=== PATIENT | female | born 1995 | race American Indian/Alaskan Native ===

== ENCOUNTER 2016-11-22 08:08 | Inpatient (IN) | payer MEDICAID ==
[2016-11-22] MEDS ORDERED: ePHEDrine SULFATE IV PRN ×4 (10:10→14:49)
[2016-11-22] MEDS ORDERED: MINERAL OIL PO PRN ×2 (10:10→11:30)
[2016-11-22] MEDS ORDERED: BRETHINE SUB-Q PRN ×2 (10:10→11:30)
[2016-11-22] MEDS ORDERED: BRETHINE IVP PRN ×2 (10:10→11:30)
[2016-11-22] MEDS ORDERED: FLUARIX QUAD 2016-2017(36 MOS+) IM ONE (10:28)
[2016-11-22 10:33] LABS: Basophils % (Auto) 0.5 % (0.0-1.8); Eosinophils % (Auto) 2.1 % (0.0-4.3); Hematocrit 33.9 % (30.3-42.9); Hemoglobin 11.3 gm/dl (10.1-14.3); Mean Corpuscular HGB Conc 33 % (30-34); Mean Corpuscular Hemoglobin 28 pg (28-32); Mean Corpuscular Volume 85 fl (79-97); Platelet Count 244 K/mm3 (140-440); Red Blood Count 3.98 M/mm3 (3.65-5.03); White Blood Count 9.7 K/mm3 (4.5-11.0)
[2016-11-22] MEDS ORDERED: PITOCin/NS 30 UNIT/500ML 30 UNIT/500 ML BAG IV SCH ×2 (11:00→12:00)
[2016-11-22] MEDS ORDERED: LACTATED RINGERS 1,000 ML IV SCH ×2 (11:00→12:00)
[2016-11-22] MEDS ORDERED: PITOCin/NS 20 UNIT/1000ML DRIP 20 UNIT/1,000 ML BAG IV SCH ×3 (11:00→20:00)
[2016-11-22] MEDS ORDERED: XYLOCAINE 2% INFILTRATI ONE ×2 (11:30→18:51)
[2016-11-22] MEDS ORDERED: STADOL IV PRN (11:30)
[2016-11-22] MEDS ORDERED: ZOFRAN IV PRN ×2 (11:30→19:08)
[2016-11-22] MEDS ORDERED: NARCAN 0.4 MG/1 ML IV PRN (11:30)
--- NOTE | 2016-11-22 11:43 | History and Physical Report ---
History of Present Illness Date of examination: 11/22/16 Date of admission: 11/22/16 08:09 Chief complaint: Presents for a scheduled induction of labor History of present illness: Late and Limited care, Co-managed with [facility] due to Morbid Obesity. Induction scheduled due to gestational hypertension. Past History Past Medical History: no pertinent history Past Surgical History: no surgical history [employer] History: herpes Family/Genetic History: hypertension (mother, father, MGM) Social history: no significant social history, single - Obstetrical History Expected Date of Delivery: 11/25/16 Actual Gestation: 39 Week(s) 4 Day(s) : 2 Para: 1 Hx # Term Pregnancies: 1 Number of Living Children: 1 #1 Infant Gender: Male year: 16 Birthweight: 2.551 kg Method of Delivery: Vaginal Gestational age at delivery: 39 Complications: other (preciptious home delivery) Medications and Allergies Allergies Allergy/AdvReac Type Severity Reaction Status Date / Time carrot Allergy Swelling Verified 05/08/15 03:57 Home Medications Medication Instructions Recorded Confirmed Last Taken Type Labetalol HCl [Labetalol HCl] 1 tab PO TID 05/08/15 05/08/15 05/08/15 11:00 History One-A-Day 1 Dha Sfgl 1 cap PO DAILY 05/08/15 05/08/15 05/08/15 11:00 History Valacyclovir HCl [valACYclovir] 1 cap PO DAILY 05/08/15 05/08/15 05/07/15 11:00 History Ibuprofen [Motrin 800 MG tab] 800 mg PO Q8HR PRN #30 tablet 11/25/15 Unknown Rx Active Meds: Active Medications Butorphanol Tartrate (Stadol) 2 mg IV Q2H PRN PRN Reason: Pain , Severe (7-10) Ephedrine Sulfate (Ephedrine Sulfate) 10 mg IV Q2M PRN PRN Reason: Hypotension Stop: 11/22/16 11:35 Lactated Ringer's (Lactated Ringers) 1,000 mls @ 125 mls/hr IV DIRECT NED Last Admin: 11/22/16 11:00 Dose: 125 mls/hr Oxytocin/Sodium Chloride (Pitocin/Ns 20 Unit/1000ml Drip) 20 unit in 1,000 mls @ 125 mls/hr IV DIRECT NED Oxytocin/Sodium Chloride (Pitocin/Ns 30 Unit/500ml) 30 unit in 500 mls @ 1 mls/ hr IV TITR NED; 1 MILLIUNITS/MIN PRN Reason: Protocol Lactated Ringer's (Lactated Ringers) 1,000 mls @ 125 mls/hr IV DIRECT NED Oxytocin/Sodium Chloride (Pitocin/Ns 20 Unit/1000ml Drip) 1,000 mls @ 125 mls/ hr IV DIRECT NED Oxytocin/Sodium Chloride (Pitocin/Ns 30 Unit/500ml) 500 mls @ 4 mls/hr IV TITR NED PRN Reason: Protocol Lidocaine (Xylocaine 2%) 20 ml INFILTRATI ONCE ONE Stop: 11/22/16 11:31 Mineral Oil (Mineral Oil) 30 ml PO QHS PRN PRN Reason: Constipation Mineral Oil (Mineral Oil) 30 ml PO QHS PRN PRN Reason: Constipation Naloxone HCl (Narcan 0.4 Mg/1 Ml) 0.1 mg IV Q2MIN PRN PRN Reason: Res Rate </= 8 or 02 SAT < 92% Ondansetron HCl (Zofran) 4 mg IV Q8H PRN PRN Reason: Nausea And Vomiting Terbutaline Sulfate (Brethine) 0.25 mg SUB-Q ONCE PRN PRN Reason: Hyperstimulation/Hypertonicity Stop: 11/22/16 11:31 Terbutaline Sulfate (Brethine) 0.25 mg IVP ONCE PRN PRN Reason: Hyperstimulation/Hypertonicity Stop: 11/22/16 11:31 Review of Systems All systems: negative - Vital Signs Vital signs: Vital Signs Pulse BP 121 H 123/68 11/22/16 08:43 11/22/16 08:43 Temp Pulse Resp BP Pulse Ox 98.1 F 90 16 135/74 100 11/22/16 10:08 11/22/16 11:37 11/22/16 10:08 11/22/16 11:31 11/22/16 11:37 - Physical Exam Breasts: Positive: normal Cardiovascular: Regular rate Lungs: Positive: Clear to auscultation, Normal air movement Abdomen: Positive: normal appearance, soft, normal bowel sounds Genitourinary (Female): Positive: normal external genitalia, normal perenium Anus/Rectum: Positive: normal perianal skin Extremities: Positive: normal - Obstetrical FHR: category 2 FHR comments: FHR: 150s, min to moderate varability, -accels, +occasional mild varbile decels , CTX q 4-5mins Uterine Contraction Monitor Mode: Internal Cervical Dilatation: 3 (AROM of a small amount of clear fluid at 1115) Cervical Effacement Percentage: 50 station: -3 Uterine Contraction Frequency (min): 5 Uterine Contraction Pattern: Regular Uterine Contraction Intensity: Mild Results Result Diagrams: 11/22/16 09:40 Abnormal lab results 11/22/16 Range/Units 09:40 Seg Neutrophils % 72.5 H (40.0-70.0) % All other labs normal. Assessment and Plan A: IUP at 39 4/7 Weeks Gestation Hypertension Category II Tracing Morbid Obesity P: Admit to L&D per routine orders AROM Internals x 2
[2016-11-22] MEDS ORDERED: ePHEDrine SULFATE ONE (14:09)
--- NOTE | 2016-11-22 14:41 | Anesthesia Consultation ---
Anesthesia Consult and Med Hx Date of service: 11/22/16 - Airway Anesthetic Teeth Evaluation: Good ROM Head & Neck: Adequate Mental/Hyoid Distance: Adequate Mallampati Class: Class III Intubation Access Assessment: Possibly Difficult - Pre-Operative Health Status ASA Pre-Surgery Classification: ASA3 Proposed Anesthetic Plan: Epidural, Spinal - Pulmonary Hx Asthma: No COPD: No Hx Pneumonia: No - Cardiovascular System Hx Hypertension: Yes (this preg.) - Central Nervous System Hx Seizures: No Hx Psychiatric Problems: No - Endocrine Hx Renal Disease: No Hx End Stage Renal Disease: No Hx Hypothyroidism: No Hx Hyperthyroidism: No - Hematic Hx Anemia: No Hx Sickle Cell Disease: No - Other Systems Hx Alcohol Use: No Hx Obesity: Yes (super obese BMI 53.4)
[2016-11-22] MEDS ORDERED: fentaNYL-BUPIV 2 MCG/ML-0.125% 200 MCG/100 ML BAG EPIDURAL ONE (14:45)
[2016-11-22] MEDS ORDERED: fentaNYL-BUPIV 2 MCG/ML-0.125% 100 ML EPIDURAL SCH (15:00)
[2016-11-22] MEDS ORDERED: fentaNYL-BUPIV 2 MCG/ML-0.125% 2 MCG/1 ML BAG EPIDURAL SCH (15:00)
[2016-11-22] MEDS ORDERED: NACL 0.9% 1000 ML 1,000 ML IV SCH (17:00)
--- NOTE | 2016-11-22 17:57 | Progress Note ---
Assessment and Plan A: IUP at 39 4/7 Weeks Gestation Hypertension Category II Tracing Morbid Obesity P: Continue Pitocin Augmentation Continue Amnioinfusion Multiple Maternal Position Changes Consult Dr. José Miguel Salazar and Care Transferred to Dr. Salazar Subjective - Subjective Date of service: 11/22/16 Interval history: Late and Limited care, Co-managed with [facility] due to Morbid Obesity. Induction scheduled due to gestational hypertension. Patient reports: other (Resting well under epidural anesthesia) Objective - Vital Signs Vital Signs: Vital Signs - 12hr 11/22/16 11/22/16 11/22/16 08:43 10:00 10:08 Temperature 97.4 F L 98.1 F Pulse Rate 121 H Respiratory 16 16 Rate Blood Pressure 123/68 O2 Sat by Pulse Oximetry 11/22/16 11/22/16 11/22/16 10:29 10:59 11:31 Temperature Pulse Rate 96 H 95 H 93 H Respiratory Rate Blood Pressure 115/61 140/77 135/74 O2 Sat by Pulse Oximetry 11/22/16 11/22/16 11/22/16 11:37 11:42 11:47 Temperature Pulse Rate 90 86 87 Respiratory Rate Blood Pressure O2 Sat by Pulse 100 99 100 Oximetry 11/22/16 11/22/16 11/22/16 11:52 11:57 12:00 Temperature Pulse Rate 88 91 H 86 Respiratory Rate Blood Pressure 137/73 O2 Sat by Pulse 99 100 Oximetry 11/22/16 11/22/16 11/22/16 12:02 12:07 12:12 Temperature Pulse Rate 86 84 84 Respiratory Rate Blood Pressure O2 Sat by Pulse 99 98 99 Oximetry 11/22/16 11/22/16 11/22/16 12:17 12:22 12:27 Temperature Pulse Rate 84 83 102 H Respiratory Rate Blood Pressure O2 Sat by Pulse 99 98 98 Oximetry 11/22/16 11/22/16 11/22/16 12:32 12:37 12:38 Temperature Pulse Rate 76 79 79 Respiratory Rate Blood Pressure O2 Sat by Pulse 100 85 75 L Oximetry 11/22/16 11/22/16 11/22/16 12:42 12:47 12:52 Temperature Pulse Rate 92 H 84 79 Respiratory Rate Blood Pressure O2 Sat by Pulse 100 100 100 Oximetry 11/22/16 11/22/16 11/22/16 12:57 13:01 13:02 Temperature Pulse Rate 84 81 90 Respiratory Rate Blood Pressure 145/76 O2 Sat by Pulse 100 100 Oximetry 11/22/16 11/22/16 11/22/16 13:07 13:10 13:12 Temperature Pulse Rate 87 90 77 Respiratory Rate Blood Pressure O2 Sat by Pulse 100 89 100 Oximetry 11/22/16 11/22/16 11/22/16 13:17 13:22 13:23 Temperature Pulse Rate 93 H 99 H 77 Respiratory Rate Blood Pressure 140/76 O2 Sat by Pulse 100 100 Oximetry 11/22/16 11/22/16 11/22/16 13:27 13:30 13:32 Temperature Pulse Rate 87 83 80 Respiratory Rate Blood Pressure 142/75 O2 Sat by Pulse 100 100 Oximetry 11/22/16 11/22/16 11/22/16 13:37 13:42 13:47 Temperature Pulse Rate 91 H 85 93 H Respiratory Rate Blood Pressure O2 Sat by Pulse 100 100 100 Oximetry 11/22/16 11/22/16 11/22/16 13:52 13:57 14:00 Temperature Pulse Rate 88 88 75 Respiratory Rate Blood Pressure 142/68 O2 Sat by Pulse 100 100 Oximetry 11/22/16 11/22/16 11/22/16 14:02 14:07 14:12 Temperature Pulse Rate 85 98 H 94 H Respiratory Rate Blood Pressure O2 Sat by Pulse 100 100 100 Oximetry 11/22/16 11/22/16 11/22/16 14:14 14:19 14:22 Temperature Pulse Rate 99 H 111 H 105 H Respiratory Rate Blood Pressure 132/72 O2 Sat by Pulse 88 100 Oximetry 11/22/16 11/22/16 11/22/16 14:24 14:26 14:28 Temperature Pulse Rate 99 H 98 H 87 Respiratory Rate Blood Pressure 135/75 131/61 132/63 O2 Sat by Pulse 100 Oximetry 11/22/16 11/22/16 11/22/16 14:29 14:30 14:32 Temperature Pulse Rate 92 H 84 89 Respiratory Rate Blood Pressure 128/63 126/65 O2 Sat by Pulse 100 Oximetry 11/22/16 11/22/16 11/22/16 14:33 14:34 14:36 Temperature Pulse Rate 109 H 94 H 91 H Respiratory Rate Blood Pressure 118/59 120/59 O2 Sat by Pulse 75 L 98 Oximetry 11/22/16 11/22/16 11/22/16 14:39 14:43 14:44 Temperature Pulse Rate 112 H 103 H 98 H Respiratory Rate Blood Pressure 151/86 150/60 140/62 O2 Sat by Pulse 99 99 Oximetry 11/22/16 11/22/16 11/22/16 14:49 14:52 14:54 Temperature Pulse Rate 94 H 111 H 90 Respiratory Rate Blood Pressure 113/56 115/58 107/56 O2 Sat by Pulse 100 100 Oximetry 11/22/16 11/22/16 11/22/16 14:56 14:58 14:59 Temperature Pulse Rate 99 H 93 H 92 H Respiratory Rate Blood Pressure 103/58 100/58 O2 Sat by Pulse 100 Oximetry 11/22/16 11/22/16 11/22/16 15:00 15:03 15:04 Temperature Pulse Rate 93 H 97 H 100 H Respiratory Rate Blood Pressure 100/55 100/67 O2 Sat by Pulse 100 Oximetry 11/22/16 11/22/16 11/22/16 15:06 15:08 15:09 Temperature Pulse Rate 96 H 93 H 106 H Respiratory Rate Blood Pressure 101/62 99/55 O2 Sat by Pulse 99 Oximetry 11/22/16 11/22/16 11/22/16 15:10 15:12 15:14 Temperature Pulse Rate 99 H 89 86 Respiratory Rate Blood Pressure 103/61 104/60 99/54 O2 Sat by Pulse 100 Oximetry 11/22/16 11/22/16 11/22/16 15:16 15:18 15:19 Temperature Pulse Rate 90 87 80 Respiratory Rate Blood Pressure 94/55 97/52 O2 Sat by Pulse 100 Oximetry 11/22/16 11/22/16 11/22/16 15:20 15:22 15:24 Temperature Pulse Rate 83 93 H 93 H Respiratory Rate Blood Pressure 98/52 103/55 107/57 O2 Sat by Pulse 100 Oximetry 11/22/16 11/22/16 11/22/16 15:26 15:28 15:29 Temperature Pulse Rate 85 93 H 90 Respiratory Rate Blood Pressure 110/56 110/68 O2 Sat by Pulse 88 100 Oximetry 11/22/16 11/22/16 11/22/16 15:30 15:32 15:34 Temperature Pulse Rate 100 H 88 85 Respiratory Rate Blood Pressure 104/59 105/56 111/57 O2 Sat by Pulse 100 Oximetry 11/22/16 11/22/16 11/22/16 15:36 15:38 15:39 Temperature Pulse Rate 95 H 96 H 91 H Respiratory Rate Blood Pressure 106/57 101/59 O2 Sat by Pulse 81 L Oximetry 11/22/16 11/22/16 11/22/16 15:40 15:42 15:44 Temperature Pulse Rate 86 90 87 Respiratory Rate Blood Pressure 96/56 101/57 100/56 O2 Sat by Pulse 100 Oximetry 11/22/16 11/22/16 11/22/16 15:46 15:48 15:49 Temperature Pulse Rate 89 90 90 Respiratory Rate Blood Pressure 101/58 104/66 O2 Sat by Pulse 100 Oximetry 11/22/16 11/22/16 11/22/16 15:50 15:52 15:54 Temperature Pulse Rate 89 88 81 Respiratory Rate Blood Pressure 105/56 102/58 101/59 O2 Sat by Pulse 88 Oximetry 11/22/16 11/22/16 11/22/16 15:56 15:58 15:59 Temperature Pulse Rate 93 H 89 84 Respiratory Rate Blood Pressure 104/56 103/56 O2 Sat by Pulse 100 Oximetry 11/22/16 11/22/16 11/22/16 16:00 16:02 16:04 Temperature Pulse Rate 93 H 85 84 Respiratory Rate Blood Pressure 105/60 106/57 104/57 O2 Sat by Pulse 100 Oximetry 11/22/16 11/22/16 11/22/16 16:06 16:08 16:09 Temperature Pulse Rate 86 81 89 Respiratory Rate Blood Pressure 106/56 102/52 O2 Sat by Pulse 100 Oximetry 11/22/16 11/22/16 11/22/16 16:10 16:12 16:13 Temperature Pulse Rate 102 H 89 85 Respiratory Rate Blood Pressure 115/57 103/55 O2 Sat by Pulse 90 Oximetry 11/22/16 11/22/16 11/22/16 16:14 16:16 16:18 Temperature Pulse Rate 84 91 H 86 Respiratory Rate Blood Pressure 95/53 103/53 103/54 O2 Sat by Pulse 100 Oximetry 11/22/16 11/22/16 11/22/16 16:19 16:20 16:22 Temperature Pulse Rate 85 86 84 Respiratory Rate Blood Pressure 100/59 104/57 O2 Sat by Pulse 100 Oximetry 11/22/16 11/22/16 11/22/16 16:24 16:26 16:27 Temperature Pulse Rate 93 H 88 84 Respiratory Rate Blood Pressure 101/57 98/55 O2 Sat by Pulse 100 81 L Oximetry 11/22/16 11/22/16 11/22/16 16:28 16:29 16:30 Temperature Pulse Rate 88 89 84 Respiratory Rate Blood Pressure 99/54 97/56 O2 Sat by Pulse 100 Oximetry 11/22/16 11/22/16 11/22/16 16:32 16:34 16:36 Temperature Pulse Rate 87 86 90 Respiratory Rate Blood Pressure 104/50 101/55 99/53 O2 Sat by Pulse 100 Oximetry 11/22/16 11/22/16 11/22/16 16:38 16:39 16:40 Temperature Pulse Rate 90 78 85 Respiratory Rate Blood Pressure 104/56 101/59 O2 Sat by Pulse 88 98 Oximetry 11/22/16 11/22/16 11/22/16 16:42 16:43 16:44 Temperature Pulse Rate 88 90 85 Respiratory Rate Blood Pressure 103/59 101/58 O2 Sat by Pulse 91 100 Oximetry 11/22/16 11/22/16 11/22/16 16:46 16:48 16:49 Temperature Pulse Rate 76 84 89 Respiratory Rate Blood Pressure 100/54 100/55 O2 Sat by Pulse 100 Oximetry 11/22/16 11/22/16 11/22/16 16:50 16:52 16:54 Temperature Pulse Rate 86 81 82 Respiratory Rate Blood Pressure 105/56 106/57 109/57 O2 Sat by Pulse 100 Oximetry 11/22/16 11/22/16 11/22/16 16:56 16:58 16:59 Temperature Pulse Rate 90 88 81 Respiratory Rate Blood Pressure 100/58 102/57 O2 Sat by Pulse 100 Oximetry 11/22/16 11/22/16 11/22/16 17:00 17:02 17:04 Temperature Pulse Rate 85 74 86 Respiratory Rate Blood Pressure 99/55 99/56 101/59 O2 Sat by Pulse 100 Oximetry 11/22/16 11/22/16 11/22/16 17:06 17:08 17:09 Temperature Pulse Rate 82 92 H 87 Respiratory Rate Blood Pressure 103/56 104/59 O2 Sat by Pulse 100 Oximetry 11/22/16 11/22/16 11/22/16 17:10 17:14 17:19 Temperature Pulse Rate 69 84 88 Respiratory Rate Blood Pressure O2 Sat by Pulse 85 100 100 Oximetry 11/22/16 11/22/16 11/22/16 17:24 17:29 17:32 Temperature Pulse Rate 87 82 91 H Respiratory Rate Blood Pressure 127/68 O2 Sat by Pulse 100 100 Oximetry 11/22/16 11/22/16 11/22/16 17:34 17:39 17:44 Temperature Pulse Rate 89 91 H 83 Respiratory Rate Blood Pressure O2 Sat by Pulse 100 100 100 Oximetry - Exam Breasts: normal Cardiovascular: Regular rate Lungs: Clear to auscultation, Normal air movement Abdomen: Present: normal appearance, soft, normal bowel sounds Uterus: Present: normal, firm, fundal height above umbilicus FHR: category 2 FHR comments: FHR: 140, moderate varabilty, -accels, +occ mild varabile decels, CTX q 2-4mins Cervical Dilatation: 5 (large amount of clear fluid leaking ) Cervical Effacement Percentage: 80 station: -2 Uterine Contraction Frequency (min): 2-4 Uterine Contraction Pattern: Regular Uterine Contraction Intensity: Moderate Extremities: normal - Labs Labs: Abnormal Labs 11/22/16 09:40 Seg Neutrophils % 72.5 H Laboratory Results - last 24 hr 11/22/16 11/22/16 09:40 09:40 WBC 9.7 RBC 3.98 Hgb 11.3 Hct 33.9 MCV 85 MCH 28 MCHC 33 RDW 14.0 Plt Count 244 Lymph % (Auto) 18.0 [place] % (Auto) 6.9 Eos % (Auto) 2.1 Baso % (Auto) 0.5 Lymph # 1.8 [place] # 0.7 Eos # 0.2 Baso # 0.0 Seg Neutrophils % 72.5 H Seg Neutrophils # 7.0 Blood Type B POSITIVE Antibody Screen Negative
--- NOTE | 2016-11-22 19:06 | Procedure Note ---
OB Delivery Note - Delivery Date of Delivery: 11/22/16 Surgeon: LYNDSAY RUST Estimated blood loss: 200cc - Vaginal Delivery presentation: vertex Delivery position: OA Intrapartum events: gestational hypertension, mult.variable deceleratio Delivery induction: oxytocin Delivery augmentation: rupture of membranes Delivery monitor: internal FHT, internal uterine Route of delivery: Delivery placenta: spontaneous Delivery cord: nuchal cord (x1 - easily reduced), 3 umbilical vessels Episiotomy: none Delivery laceration: 2nd degree (perineal) Delivery repair: vicryl Anesthesia: epidural - A at 1 minute: 8 at 5 minutes: 9 Infant Gender: Female (3004gms)
[2016-11-22] MEDS ORDERED: NORCO 5/325 PO PRN (19:08)
[2016-11-22] MEDS ORDERED: PHENERGAN PO PRN (19:08)
[2016-11-22] MEDS ORDERED: TUCKS PAD TP PRN (19:08)
[2016-11-22] MEDS ORDERED: TYLENOL PO PRN (19:08)
[2016-11-22] MEDS ORDERED: DULCOLAX PR PRN (19:08)
[2016-11-22] MEDS ORDERED: BENADRYL PO PRN (19:08)
[2016-11-22] MEDS ORDERED: PHENERGAN PR PRN (19:08)
[2016-11-22] MEDS ORDERED: MILK OF MAGNESIA PO PRN (19:08)
[2016-11-22] MEDS ORDERED: DERMOPLAST TP PRN (19:08)
[2016-11-22] MEDS ORDERED: LANSINOH TP PRN (19:08)
[2016-11-22] MEDS ORDERED: SENOKOT S PO SCH (20:00)
[2016-11-22] MEDS ORDERED: MOTRIN PO SCH (20:00)
[2016-11-22] MEDS ORDERED: SODIUM CHLORIDE FLUSH SYRINGE 10 ML IV NR (20:00)
[2016-11-23] MEDS: FEOSOL PO SCH ×3 (00:15→21:57)
[2016-11-23] MEDS: COLACE PO SCH ×3 (00:15→21:56)
[2016-11-23] MEDS: MOTRIN PO SCH ×2 (05:33→11:38)
[2016-11-23] MEDS ORDERED: BOOSTRIX IM ONE ×2 (06:00→19:08)
[2016-11-23 08:26] LABS: Hematocrit 33.1 % (30.3-42.9); Hemoglobin 10.6 gm/dl (10.1-14.3)
--- NOTE | 2016-11-23 10:00 | Progress Note ---
Subjective Date of service: 11/23/16 Interval history: 1st day after normal vaginal delivery Patient is in the bed, comfortable. Pain is controlled with pain meds. No residual neurological deficit. No anesthesia complications Objective - Constitutional Vitals: Vital Signs - 12hr 11/23/16 11/23/16 01:45 04:30 Temperature 98.6 F 98.6 F Pulse Rate [ 71 71 Right From Monitor] Respiratory 22 22 Rate Blood Pressure 117/69 132/68 [Right Arm] - Labs CBC & Chem 7: 11/23/16 07:41 Labs: Abnormal lab results 11/22/16 Range/Units 09:40 Seg Neutrophils % 72.5 H (40.0-70.0) %
--- NOTE | 2016-11-23 10:32 | Progress Note ---
Assessment and Plan A: PPD1 Difficulty with latch Contraception plan for Nexplanon at 6 weeks P: Routine PP care consult Breast pump D/C tomorrow if stable. Subjective - Subjective Date of service: 11/23/16 Principal diagnosis: PPD1 Patient reports: appetite normal, voiding normally, pain well controlled, ambulating normally : doing well Objective - Vital Signs Latest vital signs: Vital Signs Temp Pulse Pulse Resp BP BP Pulse Ox 11/23/16 08:58 98.1 F 76 20 112/60 11/23/16 04:30 98.6 F 71 22 132/68 11/23/16 01:45 98.6 F 71 22 117/69 11/22/16 22:00 98.6 F 82 20 120/57 11/22/16 20:29 102 H 139/60 11/22/16 20:15 98.4 F 18 11/22/16 20:14 99 H 127/59 11/22/16 20:06 98 H 100 11/22/16 20:01 105 H 99 11/22/16 19:59 98 H 136/67 11/22/16 19:56 101 H 100 11/22/16 19:51 104 H 100 11/22/16 19:46 104 H 100 11/22/16 19:44 114 H 137/81 11/22/16 19:41 104 H 100 11/22/16 19:36 101 H 99 11/22/16 19:31 99 H 98 11/22/16 19:29 99 H 137/89 11/22/16 19:26 103 H 99 11/22/16 19:21 109 H 99 11/22/16 19:16 111 H 99 11/22/16 19:14 111 H 136/76 11/22/16 19:11 114 H 100 11/22/16 19:06 112 H 100 11/22/16 19:01 107 H 100 11/22/16 18:59 107 H 137/69 11/22/16 18:56 107 H 100 11/22/16 18:44 134 H 100 11/22/16 18:39 122 H 100 11/22/16 18:34 112 H 100 11/22/16 18:29 102 H 100 11/22/16 18:24 106 H 99 11/22/16 18:19 95 H 99 11/22/16 18:14 92 H 99 11/22/16 18:13 104 H 128/62 11/22/16 18:09 100 H 100 11/22/16 18:06 93 H 121/53 11/22/16 18:04 90 100 11/22/16 18:03 98.1 F 18 11/22/16 17:59 97 H 100 11/22/16 17:54 96 H 99 11/22/16 17:49 97 H 100 11/22/16 17:44 83 100 11/22/16 17:39 91 H 100 11/22/16 17:34 89 100 11/22/16 17:32 91 H 127/68 11/22/16 17:29 82 100 11/22/16 17:24 87 100 11/22/16 17:19 88 100 11/22/16 17:14 84 100 11/22/16 17:10 69 85 11/22/16 17:09 87 100 11/22/16 17:08 92 H 104/59 11/22/16 17:06 82 103/56 11/22/16 17:04 86 101/59 100 11/22/16 17:02 74 99/56 11/22/16 17:00 85 99/55 11/22/16 16:59 81 100 11/22/16 16:58 88 102/57 11/22/16 16:56 90 100/58 11/22/16 16:54 82 109/57 100 11/22/16 16:52 81 106/57 11/22/16 16:50 86 105/56 11/22/16 16:49 89 100 11/22/16 16:48 84 100/55 11/22/16 16:46 76 100/54 11/22/16 16:44 85 101/58 100 11/22/16 16:43 90 91 11/22/16 16:42 88 103/59 11/22/16 16:40 85 101/59 11/22/16 16:39 78 98 11/22/16 16:38 90 104/56 88 11/22/16 16:36 90 99/53 11/22/16 16:34 86 101/55 100 11/22/16 16:32 87 104/50 11/22/16 16:30 84 97/56 11/22/16 16:29 89 100 11/22/16 16:28 88 99/54 11/22/16 16:27 84 81 L 11/22/16 16:26 88 98/55 11/22/16 16:24 93 H 101/57 100 11/22/16 16:22 84 104/57 11/22/16 16:20 86 100/59 11/22/16 16:19 85 100 11/22/16 16:18 86 103/54 11/22/16 16:16 91 H 103/53 11/22/16 16:14 84 95/53 100 11/22/16 16:13 85 90 11/22/16 16:12 89 103/55 11/22/16 16:10 102 H 115/57 11/22/16 16:09 89 100 11/22/16 16:08 81 102/52 11/22/16 16:06 86 106/56 11/22/16 16:04 84 104/57 100 11/22/16 16:02 85 106/57 11/22/16 16:00 93 H 105/60 11/22/16 15:59 84 100 11/22/16 15:58 89 103/56 11/22/16 15:56 93 H 104/56 11/22/16 15:54 81 101/59 88 11/22/16 15:52 88 102/58 11/22/16 15:50 89 105/56 11/22/16 15:49 90 100 11/22/16 15:48 90 104/66 11/22/16 15:46 89 101/58 11/22/16 15:44 87 100/56 100 11/22/16 15:42 90 101/57 11/22/16 15:40 86 96/56 11/22/16 15:39 91 H 81 L 11/22/16 15:38 96 H 101/59 11/22/16 15:36 95 H 106/57 11/22/16 15:34 85 111/57 100 11/22/16 15:32 88 105/56 11/22/16 15:30 100 H 104/59 11/22/16 15:29 90 100 11/22/16 15:28 93 H 110/68 88 11/22/16 15:26 85 110/56 11/22/16 15:24 93 H 107/57 100 11/22/16 15:22 93 H 103/55 11/22/16 15:20 83 98/52 11/22/16 15:19 80 100 11/22/16 15:18 87 97/52 11/22/16 15:16 90 94/55 11/22/16 15:14 86 99/54 100 11/22/16 15:12 89 104/60 11/22/16 15:10 99 H 103/61 11/22/16 15:09 106 H 99 11/22/16 15:08 93 H 99/55 11/22/16 15:06 96 H 101/62 11/22/16 15:04 100 H 100 11/22/16 15:03 97 H 100/67 11/22/16 15:00 93 H 100/55 11/22/16 14:59 92 H 100 11/22/16 14:58 93 H 100/58 11/22/16 14:56 99 H 103/58 11/22/16 14:54 90 107/56 100 11/22/16 14:52 111 H 115/58 11/22/16 14:49 94 H 113/56 100 11/22/16 14:44 98 H 140/62 99 11/22/16 14:43 103 H 150/60 11/22/16 14:39 112 H 151/86 99 11/22/16 14:36 91 H 120/59 11/22/16 14:34 94 H 118/59 98 11/22/16 14:33 109 H 75 L 11/22/16 14:32 89 126/65 11/22/16 14:30 84 128/63 11/22/16 14:29 92 H 100 11/22/16 14:28 87 132/63 11/22/16 14:26 98 H 131/61 11/22/16 14:24 99 H 135/75 100 11/22/16 14:22 105 H 132/72 11/22/16 14:19 111 H 100 11/22/16 14:14 99 H 88 11/22/16 14:12 94 H 100 11/22/16 14:07 98 H 100 11/22/16 14:02 85 100 11/22/16 14:00 75 142/68 11/22/16 13:57 88 100 11/22/16 13:52 88 100 11/22/16 13:47 93 H 100 11/22/16 13:42 85 100 11/22/16 13:37 91 H 100 11/22/16 13:32 80 100 11/22/16 13:30 83 142/75 11/22/16 13:27 87 100 11/22/16 13:23 77 140/76 11/22/16 13:22 99 H 100 11/22/16 13:17 93 H 100 11/22/16 13:12 77 100 11/22/16 13:10 90 89 11/22/16 13:07 87 100 11/22/16 13:02 90 100 11/22/16 13:01 81 145/76 11/22/16 12:57 84 100 11/22/16 12:52 79 100 11/22/16 12:47 84 100 11/22/16 12:42 92 H 100 11/22/16 12:38 79 75 L 11/22/16 12:37 79 85 11/22/16 12:32 76 100 11/22/16 12:27 102 H 98 11/22/16 12:22 83 98 11/22/16 12:17 84 99 11/22/16 12:12 84 99 11/22/16 12:07 84 98 11/22/16 12:02 86 99 11/22/16 12:00 86 137/73 11/22/16 11:57 91 H 100 11/22/16 11:52 88 99 11/22/16 11:47 87 100 11/22/16 11:42 86 99 11/22/16 11:37 90 100 11/22/16 11:31 93 H 135/74 11/22/16 10:59 95 H 140/77 Intake and Output 11/22/16 11/23/16 11/23/16 22:59 06:59 14:59 Intake Total 850 525 Output Total 700 400 400 Balance 150 125 -400 Intake: IV 250 125 PITOCin/NS 20 UNIT/1000ML 250 125 DRIP 20 unit In 1,000 ml @ 125 mls/hr IV DIRECT NED Rx#:[id number] Oral 600 400 Output: Urine 700 400 400 Void 700 400 400 Other: Total, Intake Amount 600 400 Total, Output Amount 700 400 400 # Voids Void 1 Estimated Blood Loss 200 - Exam Cardiovascular: Present: Regular rate Lungs: Present: Normal air movement Abdomen: Present: normal appearance, normal bowel sounds Uterus: Present: normal, firm Extremities: Present: normal Deep Tendon Reflex Grade: Normal +2 - Labs Labs: Abnormal lab results 11/22/16 Range/Units 09:40 Seg Neutrophils % 72.5 H (40.0-70.0) %
--- NOTE | 2016-11-23 10:35 | Discharge Summary ---
Providers - Providers Date of Admission: 11/22/16 08:09 Date of discharge: 11/24/16 Attending physician: LYNDSAY PATTERSON MD Primary care physician: LYNDSAY PATTERSON MD Hospitalization Reason for admission: active labor Delivery: Laceration: 2nd degree Discharge diagnosis: IUP at term delivered [place] baby: female Condition at discharge: Good Disposition: DISCHARGED TO HOME OR SELFCARE Plan - Provider Discharge Summary Activity: routine, no sex for 6 weeks, no heavy lifting 4 weeks, no strenuous exercise Diet: routine Instructions: routine Additional instructions: [] Smoking cessation referral if applicable(refer to patient education folder for contact #) [] Refer to [facility] Booklet Call your doctor immediately for: * Fever > 100.5 * Heavy vaginal bleeding ( >1 pad per hour) * Severe persistent headache * Shortness of breath * Reddened, hot, painful area to leg or breast * Drainage or odor from incision. * Keep incision clean and dry at all times and follow doctor's instructions regarding bathing/showering - Follow up plan Follow up: [facility] [Provider Group] - 6 Weeks
[2016-11-23] MEDS: PRENATAL VITAMIN PO SCH (11:37)
[2016-11-23] MEDS ORDERED: M-M-R II VACCINE SUB-Q ONE (19:08)
[2016-11-24] MEDS: MOTRIN PO SCH ×2 (00:23→05:24)
[2016-11-24] MEDS ORDERED: M-M-R II VACCINE SUB-Q ONE (06:00)
[2016-11-24 09:05] VITALS: BP 155/86
[2016-11-24] MEDS: FEOSOL PO SCH (10:23)
[2016-11-24] MEDS: COLACE PO SCH (10:23)
[2016-11-24] MEDS: PRENATAL VITAMIN PO SCH (10:45)
[2016-11-24] MEDS ORDERED: FLUARIX QUAD 2016-2017(36 MOS+) IM ONE (11:00)
== END 2016-11-24 11:35 | disposition home or self-care (01) | DRG 775 ==
LOC: TRG 08:08 → LD 08:09 → OB 20:55
PROVIDERS: ADMIT Obstetrics & Gynecology; ATTEND Obstetrics & Gynecology
PROC: 10907ZC Drainage of Amniotic Fluid, Therapeutic from Products of Conception, Via Natural or Artificial Opening (ICD-10-PCS; principal; 2016-11-22)
PROC: 10E0XZZ Delivery of Products of Conception, External Approach (ICD-10-PCS; 2016-11-22)
PROC: 0KQM0ZZ Repair Perineum Muscle, Open Approach (ICD-10-PCS; 2016-11-22)
PROC: 3E033VJ Introduction of Other Hormone into Peripheral Vein, Percutaneous Approach (ICD-10-PCS; 2016-11-22)
PROC: 00HU33Z Insertion of Infusion Device into Spinal Canal, Percutaneous Approach (ICD-10-PCS; 2016-11-22)
PROC: 3E0R3CZ (ICD-10-PCS; 2016-11-22)
DX: O13.4 Gestational [pregnancy-induced] hypertension without significant proteinuria, complicating childbirth (principal); Z68.43 Body mass index [BMI] 50.0-59.9, adult; O99.214 Obesity complicating childbirth; O76 Abnormality in fetal heart rate and rhythm complicating labor and delivery; O69.81X0 Labor and delivery complicated by cord around neck, without compression, not applicable or unspecified; E66.01 Morbid (severe) obesity due to excess calories; O70.1 Second degree perineal laceration during delivery; Z37.0 Single live birth; Z3A.39 39 weeks gestation of pregnancy; Z91.018 Allergy to other foods; Z82.49 Family history of ischemic heart disease and other diseases of the circulatory system
CPT/HCPCS: 36415; 85014; 85018; 85025; 86850; 86900; 86901; 90471; 90686; 90715; A6250; G0008; J2590; J7030; J7120

== ENCOUNTER 2017-06-29 16:50 | Emergency (ER) | payer MEDICAID ==
[2017-06-29 19:55] LABS: Basophils % (Auto) 0.9 % (0.0-1.8); Eosinophils % (Auto) 2.6 % (0.0-4.3); Hematocrit 38.9 % (30.3-42.9); Hemoglobin 12.4 gm/dl (10.1-14.3); Mean Corpuscular HGB Conc 32 % (30-34); Mean Corpuscular Hemoglobin 28 pg (28-32); Mean Corpuscular Volume 86 fl (79-97); Platelet Count 254 K/mm3 (140-440); Red Blood Count 4.52 M/mm3 (3.65-5.03); Red Cell Distribution Width 13.3 % (13.2-15.2); White Blood Count 11.7 K/mm3 (4.5-11.0)
[2017-06-29 20:16] LABS: Alanine Aminotransferase 13 units/L (7-56); Albumin/Globulin Ratio 1.3 %; Alkaline Phosphatase 107 units/L (35-129); Anion Gap 16 mmol/L; BUN/Creatinine Ratio 16.25; Blood Urea Nitrogen 13 mg/dL (7-17); Calcium 9.3 mg/dL (8.4-10.2); Carbon Dioxide 25 mmol/L (22-30); Chloride 111.8 mmol/L (98-107); Glucose 97 mg/dL (65-100); Lipase 35 units/L (13-60); Potassium 4.9 mmol/L (3.6-5.0); Sodium 148 mmol/L (137-145)
[2017-06-29 21:19] LABS: Bacteria,Urine 1+ /HPF (Negative); Bilirubin,Urine NEG (Negative); Blood,Urine LG (Negative); Ketones,Urine NEG (Negative); Leukocyte Esterase,Urine MOD (Negative); Mucus,Urine FEW /HPF; Nitrite,Urine NEG (Negative); Protein,Urine <15 mg/dL mg/dL (Negative); Urobilinogen,Urine < 2.0 mg/dL (<2.0)
[2017-06-30] MEDS ORDERED: TYLENOL PO ONE (02:23)
--- NOTE | 2017-06-30 02:24 | Emergency Department Report ---
ED General Adult HPI - General Chief complaint: Abdominal Pain Stated complaint: ABDOMINAL AND BACK PAIN Time Seen by Provider: 06/30/17 01:08 Source: patient, RN notes reviewed Mode of arrival: Ambulatory Limitations: No Limitations - History of Present Illness Initial comments: This is a 30-year-old female, the patient is previously known to this provider. The patient presents to the ER complaining of lower abdominal cramping, no nausea, no vomiting, no diarrhea, no dysuria, positive constipation. Also complains of lower back pain. The cramping is present for a few days, it does not radiate anywhere, has no exacerbating or relieving factors. Patient reports being sexually active with one male partner, denies history of gonorrhea/chlamydia. -: Gradual Location: abdomen Severity scale (0 -10): 8 Quality: aching Consistency: intermittent Improves with: none Worsens with: none Associated Symptoms: denies other symptoms, other (lower abdominal pain, cramping, constipation, back pain) - Related Data Home Medications Medication Instructions Recorded Confirmed Last Taken Labetalol HCl [Labetalol HCl] 1 tab PO TID 05/08/15 05/08/15 05/08/15 11:00 One-A-Day 1 Dha Sfgl 1 cap PO DAILY 05/08/15 05/08/15 05/08/15 11:00 Valacyclovir HCl [valACYclovir] 1 cap PO DAILY 05/08/15 05/08/15 05/07/15 11:00 Previous Rx's Medication Instructions Recorded Last Taken Type Ibuprofen [Motrin 800 MG tab] 800 mg PO Q8HR PRN #30 tablet 11/25/15 Unknown Rx Cephalexin [Keflex] 500 mg PO BID #20 capsule 11/25/16 Unknown Rx Ibuprofen [Motrin 800 MG tab] 800 mg PO Q8HR PRN #30 tablet 11/25/16 Unknown Rx Dicyclomine [Bentyl] 10 mg PO QID PRN #20 capsule 06/30/17 Unknown Rx Ondansetron [Zofran Odt] 4 mg PO QID PRN #20 tab.rapdis 06/30/17 Unknown Rx Polyethylene Glycol 3350 [Miralax 17 gm PO QDAY #30 packet 06/30/17 Unknown Rx 3350] Allergies Allergy/AdvReac Type Severity Reaction Status Date / Time carrot Allergy Swelling Verified 05/08/15 03:57 ED Review of Systems ROS: Stated complaint: ABDOMINAL AND BACK PAIN Other details as noted in HPI Constitutional: denies: fever Eyes: denies: vision change ENT: denies: epistaxis Respiratory: denies: cough Cardiovascular: denies: chest pain Gastrointestinal: abdominal pain, constipation Genitourinary: discharge Musculoskeletal: back pain Skin: denies: lesions Neurological: denies: weakness Psychiatric: denies: anxiety ED Past Medical Hx - Past Medical History Hx Hypertension: Yes (this preg.) Hx Congestive Heart Failure: No Hx Diabetes: No Hx Deep Vein Thrombosis: No Hx Renal Disease: No Hx Sickle Cell Disease: No Hx Seizures: No Hx Asthma: No Hx COPD: No Hx HIV: No - Social History Smoking Status: Never Smoker Substance Use Type: None - Medications Home Medications: Home Medications Medication Instructions Recorded Confirmed Last Taken Type Labetalol HCl [Labetalol HCl] 1 tab PO TID 05/08/15 05/08/15 05/08/15 11:00 History One-A-Day 1 Dha Sfgl 1 cap PO DAILY 05/08/15 05/08/15 05/08/15 11:00 History Valacyclovir HCl [valACYclovir] 1 cap PO DAILY 05/08/15 05/08/15 05/07/15 11:00 History Ibuprofen [Motrin 800 MG tab] 800 mg PO Q8HR PRN #30 tablet 11/25/15 Unknown Rx Cephalexin [Keflex] 500 mg PO BID #20 capsule 11/25/16 Unknown Rx Ibuprofen [Motrin 800 MG tab] 800 mg PO Q8HR PRN #30 tablet 11/25/16 Unknown Rx Dicyclomine [Bentyl] 10 mg PO QID PRN #20 capsule 06/30/17 Unknown Rx Ondansetron [Zofran Odt] 4 mg PO QID PRN #20 tab.rapdis 06/30/17 Unknown Rx Polyethylene Glycol 3350 [Miralax 17 gm PO QDAY #30 packet 06/30/17 Unknown Rx 3350] ED Physical Exam - General Limitations: No Limitations General appearance: alert, in no apparent distress, obese - Head Head exam: Present: atraumatic, normocephalic - Eye Eye exam: Present: normal appearance, EOMI. Absent: nystagmus - ENT ENT exam: Present: normal exam, normal orophraynx, mucous membranes moist, normal external ear exam - Neck Neck exam: Present: normal inspection, full ROM. Absent: tenderness, meningismus - Respiratory Respiratory exam: Present: normal lung sounds bilaterally. Absent: respiratory distress, wheezes, rales, rhonchi, stridor, chest wall tenderness, accessory muscle use, decreased breath sounds, prolonged expiratory - Cardiovascular Cardiovascular Exam: Present: regular rate, normal rhythm, normal heart sounds. Absent: bradycardia, tachycardia, irregular rhythm, systolic murmur, diastolic murmur, rubs, gallop - GI/Abdominal GI/Abdominal exam: Present: soft, normal bowel sounds. Absent: distended, tenderness, guarding, rebound, rigid, pulsatile mass - External exam: Present: normal external exam Speculum exam: Present: normal speculum exam. Absent: cervical discharge, vaginal bleeding, foreign body Bi-manual exam: Present: normal bi-manual exam, other (escorted by nurse Idalmis Mosher). Absent: cervical motion tendernes, adnexal tenderness, adnexal mass - Extremities Exam Extremities exam: Present: normal inspection, full ROM, normal capillary refill. Absent: tenderness, pedal edema, joint swelling, calf tenderness - Back Exam Back exam: Present: normal inspection, full ROM. Absent: tenderness, CVA tenderness (R), CVA tenderness (L), muscle spasm, paraspinal tenderness, vertebral tenderness - Neurological Exam Neurological exam: Present: alert, oriented X3, normal gait, other (Extraocular movements intact. Tongue midline. No facial droop. Facial sensation intact to light touch in the V1, V2, V3 distribution bilaterally. 5 and 5 strength in 4 extremities.. Sensation is intact to light touch in 4 extremities.). Absent : motor sensory deficit - Psychiatric Psychiatric exam: Present: normal affect, normal mood - Skin Skin exam: Present: warm, dry, intact, normal color. Absent: rash ED Course Vital Signs 06/29/17 06/29/17 06/30/17 19:27 23:50 01:20 Temperature 98.3 F 97.9 F 98.4 F Pulse Rate 81 80 75 Respiratory 18 18 16 Rate Blood Pressure 167/79 136/79 Blood Pressure 149/91 [Right] O2 Sat by Pulse 100 98 100 Oximetry 06/30/17 06/30/17 02:56 04:15 Temperature 98.4 F 98.3 F Pulse Rate 79 73 Respiratory 16 16 Rate Blood Pressure Blood Pressure 144/84 145/82 [Right] O2 Sat by Pulse 98 100 Oximetry ED Medical Decision Making - Lab Data Result diagrams: 06/29/17 19:44 06/29/17 19:44 Vital Signs 06/29/17 06/29/17 06/30/17 19:27 23:50 01:20 Temperature 98.3 F 97.9 F 98.4 F Pulse Rate 81 80 75 Respiratory 18 18 16 Rate Blood Pressure 167/79 136/79 Blood Pressure 149/91 [Right] O2 Sat by Pulse 100 98 100 Oximetry 06/30/17 02:56 Temperature 98.4 F Pulse Rate 79 Respiratory 16 Rate Blood Pressure Blood Pressure 144/84 [Right] O2 Sat by Pulse 98 Oximetry Lab Results 06/29/17 06/29/17 06/29/17 Range/Units 19:44 19:44 20:45 WBC 11.7 H (4.5-11.0) K/mm3 RBC 4.52 (3.65-5.03) M/mm3 Hgb 12.4 (10.1-14.3) gm/dl Hct 38.9 (30.3-42.9) % MCV 86 (79-97) fl MCH 28 (28-32) pg MCHC 32 (30-34) % RDW 13.3 (13.2-15.2) % Plt Count 254 (140-440) K/mm3 Lymph % (Auto) 27.7 (13.4-35.0) % Simpson % (Auto) 5.9 (0.0-7.3) % Eos % (Auto) 2.6 (0.0-4.3) % Baso % (Auto) 0.9 (0.0-1.8) % Lymph # 3.2 (1.2-5.4) K/mm3 Simpson # 0.7 (0.0-0.8) K/mm3 Eos # 0.3 (0.0-0.4) K/mm3 Baso # 0.1 (0.0-0.1) K/mm3 Seg Neutrophils % 62.9 (40.0-70.0) % Seg Neutrophils # 7.4 (1.8-7.7) K/mm3 Sodium 148 H (137-145) mmol/L Potassium 4.9 (3.6-5.0) mmol/L Chloride 111.8 H (98-107) mmol/L Carbon Dioxide 25 (22-30) mmol/L Anion Gap 16 mmol/L BUN 13 (7-17) mg/dL Creatinine 0.8 (0.7-1.2) mg/dL Estimated GFR > 60 ml/min BUN/Creatinine Ratio 16.25 % Glucose 97 (65-100) mg/dL Calcium 9.3 (8.4-10.2) mg/dL Total Bilirubin 0.30 (0.1-1.2) mg/dL AST 15 (5-40) units/L ALT 13 (7-56) units/L Alkaline Phosphatase 107 (35-129) units/L Total Protein 7.0 (6.3-8.2) g/dL Albumin 4.0 (3.9-5) g/dL Albumin/Globulin Ratio 1.3 % Lipase 35 (13-60) units/L Urine Color Yellow (Yellow) Urine Turbidity Clear (Clear) Urine pH 5.0 (5.0-7.0) Ur Specific [place] 1.015 (1.003-1.030) Urine Protein <15 mg/dl (Negative) mg/dL Urine Glucose (UA) Neg (Negative) mg/dL Urine Ketones Neg (Negative) mg/dL Urine Blood Lg (Negative) Urine Nitrite Neg (Negative) Ur Reducing Substances Not Reportable Urine Bilirubin Neg (Negative) Urine Ictotest Not Reportable Urine Urobilinogen < 2.0 (<2.0) mg/dL Ur Leukocyte Esterase Mod (Negative) Urine WBC (Auto) 14.0 H (0.0-6.0) /HPF Urine RBC (Auto) 3.0 (0.0-6.0) /HPF U Epithel Cells (Auto) 6.0 (0-13.0) /HPF Urine Bacteria (Auto) 1+ (Negative) /HPF Urine Mucus Few /HPF Urine HCG, Qual Negative (Negative) - Radiology Data Radiology results: image reviewed interpreted by me: X-ray demonstrates stool in the ascending colon, no obvious disease. - Medical Decision Making Differential diagnosis: Constipation, functional abdominal pain, urinary tract infection, pelvic inflammatory disease Assessment and plan: 22-year-old female with nonspecific abdominal pain and back pain. She is afebrile, with reassuring vital signs, has a benign abdominal examination, no cervical motion tenderness, no adnexal tenderness, and is tolerating liquid feeds. She is very well-appearing. Most likely constipated. Patient reports no bowel movement for the past 48-72 hours. She is given instructions as to diet last modifications. Given the aforementioned physical exam findings, I think pelvic inflammatory disease is unlikely. Given her entire clinical picture, I do not feel the patient requires advanced imaging at this time, and she can be managed expectantly. Critical care attestation.: If time is entered above; I have spent that time in minutes in the direct care of this critically ill patient, excluding procedure time. ED Disposition Clinical Impression: Abdominal pain Disposition: - TO HOME OR SELFCARE Is pt being admited?: No Does the pt Need Aspirin: No Condition: Stable Instructions: Abdominal Pain (ED) Additional Instructions: Cultures were sent today, results will be available in the next 3-5 days. Please have a primary care doctor contact the medical records department to obtain culture results. Consume 6-8 cups of water per day, heat plenty of fruits, fibers, vegetables. 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 Return to the ER right away with new pain , worse pain, migration of pain, fevers, chills, lethargy, confusion, projectile vomiting, change in mental status. Take the pain medication, nausea medication as needed/directed. Take the MiraLAX medication as needed/directed. Prescriptions: Dicyclomine [Bentyl] 10 mg PO QID PRN #20 capsule PRN Reason: Pain Ondansetron [Zofran Odt] 4 mg PO QID PRN #20 tab.rapdis PRN Reason: Nausea Polyethylene Glycol 3350 [Miralax 3350] 17 gm PO QDAY #30 packet Referrals: PRIMARY CAREMD [Primary Care Provider] - 3-5 Days SYLVESTER MADSEN MD, PHD [Staff Physician] - 3-5 Days [facility] [Provider Group] - 3-5 Days [facility] [Provider Group] - 3-5 Days Forms: Work/School Release Form(ED)
[2017-06-30 04:39] VITALS: BP 145/82
--- NOTE | 2017-06-30 07:46 | XRay Report ---
ABDOMEN, 2 views: History: Abdominal pain. There is no evidence of free air beneath the diaphragms. The gas pattern within the abdomen is unremarkable. There is no evidence of bowel dilatation, significant air-fluid levels, or pathologic calcifications. Organ shadows are unremarkable. IMPRESSION: Unremarkable abdomen.
== END 2017-06-30 04:15 | disposition home or self-care (01) ==
LOC: ED 16:50
DX: R10.30 Lower abdominal pain, unspecified (principal); M54.5 Low back pain; K59.00 Constipation, unspecified; I10 Essential (primary) hypertension; Z91.018 Allergy to other foods
CPT/HCPCS: 36415; 74020; 80053; 81001; 81025; 83690; 85025; 87210; 87591

== ENCOUNTER 2017-08-01 17:33 | Emergency (ER) | payer MEDICAID ==
[2017-08-01 18:02] VITALS: BP 160/111
--- NOTE | 2017-08-01 20:39 | XRay Report ---
FINAL REPORT EXAM: XR HAND 3+V RT HISTORY: injury/ FX pain TECHNIQUE: 3 views of right hand. PRIORS: None. FINDINGS: No apparent fracture or dislocation. Joint spaces maintained. Soft tissues grossly unremarkable. IMPRESSION: 1. No acute osseous abnormality.
[2017-08-01] MEDS ORDERED: MOTRIN PO ONE (22:29)
--- NOTE | 2017-08-01 22:31 | Emergency Department Report ---
Upper Extremity - HPI Chief Complaint: Extremity Injury, Upper Stated Complaint: RIGHT MIDDLE FINGER PAIN Time Seen by Provider: 08/01/17 21:54 Upper Extremity: Right Middle Finger (injury to right middle finger) Occurred When: 1 Day (INJURY OCCURED yesterday at work. An object fell on her right middle finger, and hyperextended her finger) Mechanism: Hit with Object Severity: moderate Symptoms: Yes Pain with Movement, Yes Limited Range of Movement, Yes Swelling, No Deformity, No Numbness, No Weakness, No Bruising/Ecchymosis, No Laceration or Abrasion ED Review of Systems ROS: Stated complaint: RIGHT MIDDLE FINGER PAIN Other details as noted in HPI Comment: All other systems reviewed and negative Constitutional: denies: chills, diaphoresis, fever, malaise, weakness Eyes: denies: eye pain, eye discharge, vision change ENT: denies: ear pain, throat pain, dental pain, hearing loss, epistaxis Respiratory: denies: cough, orthopnea, shortness of breath, SOB with exertion Cardiovascular: denies: palpitations, dyspnea on exertion, orthopnea, edema, syncope, paroxysmal nocturnal dyspnea Endocrine: no symptoms reported Gastrointestinal: denies: abdominal pain, nausea, vomiting, diarrhea, constipation, hematemesis Genitourinary: denies: frequency, hematuria, discharge Musculoskeletal: as per HPI, other (discomfort right middle finger) Skin: denies: lesions, change in color, change in hair/nails, pruritus ED Past Medical Hx - Past Medical History Hx Hypertension: Yes (this preg.) Hx Congestive Heart Failure: No Hx Diabetes: No Hx Deep Vein Thrombosis: No Hx Renal Disease: No Hx Sickle Cell Disease: No Hx Seizures: No Hx Asthma: No Hx COPD: No Hx HIV: No - Social History Smoking Status: Never Smoker Substance Use Type: None - Medications Home Medications: Home Medications Medication Instructions Recorded Confirmed Last Taken Type Labetalol HCl [Labetalol HCl] 1 tab PO TID 05/08/15 05/08/15 05/08/15 11:00 History One-A-Day 1 Dha Sfgl 1 cap PO DAILY 05/08/15 05/08/15 05/08/15 11:00 History Valacyclovir HCl [valACYclovir] 1 cap PO DAILY 05/08/15 05/08/15 05/07/15 11:00 History Cephalexin [Keflex] 500 mg PO BID #20 capsule 11/25/16 Unknown Rx Ibuprofen [Motrin 800 MG tab] 800 mg PO Q8HR PRN #30 tablet 11/25/16 Unknown Rx Dicyclomine [Bentyl] 10 mg PO QID PRN #20 capsule 06/30/17 Unknown Rx Ondansetron [Zofran Odt] 4 mg PO QID PRN #20 tab.rapdis 06/30/17 Unknown Rx Polyethylene Glycol 3350 [Miralax 17 gm PO QDAY #30 packet 06/30/17 Unknown Rx 3350] Ibuprofen [Motrin 800 MG tab] 800 mg PO Q8HR PRN #30 tablet 08/01/17 Unknown Rx Upper Extremity Exam - Exam General: Vital signs noted. No distress. Alert and acting appropriately. Head and Torso: No HEENT Abnormality, No Neck Tenderness, No Chest/Lungs Abnormality, No Abdominal Tenderness, No Back Tenderness Shoulder Exam: No Shoulder Tenderness, No Clavicle Tenderness, No Normal Range of Motion in Shoulder, No Shoulder Deformity, No AC Joint Tenderness Arm Exam: No Arm/Humerus Tenderness, No Arm Deformity Elbow: No Elbow Tenderness Forearm: No Forearm Tenderness, No Forearm Deformity Wrist: No Wrist Tenderness, No Normal ROM in Wrist, No Wrist Deformity, No Snuffbox Tenderness, No Pain with Axial Thumb Compression Hand: Yes Digit Tenderness (right middle finger), No Hand Tenderness, No Hand Deformity, No Normal ROM in Digit(s) (limited range of movement right middle finger), No Digit(s) Deformity, No Tendon Dysfunction CMS Exam: No Broken Skin, No Normal Distal Pulses, No Normal Capillary Refill, No Normal Distal Sensation ED Course Vital Signs 08/01/17 17:58 Temperature 98 F Pulse Rate 69 Respiratory 16 Rate Blood Pressure 160/111 O2 Sat by Pulse 95 Oximetry Critical Care Time: No Critical care attestation.: If time is entered above; I have spent that time in minutes in the direct care of this critically ill patient, excluding procedure time. ED Disposition Clinical Impression: Sprain of finger Disposition: DC-01 TO HOME OR SELFCARE Is pt being admited?: No Does the pt Need Aspirin: No Condition: Stable Instructions: Finger Sprain (ED) Additional Instructions: Apply cool compresses as tolerated to right middle finger Prescriptions: Ibuprofen [Motrin 800 MG tab] 800 mg PO Q8HR PRN #30 tablet PRN Reason: Pain Referrals: PRIMARY CARE, [Primary Care Provider] - 3-5 Days Time of Disposition: 22:30
== END 2017-08-01 22:44 | disposition home or self-care (01) ==
LOC: ED 17:33
DX: S63.692A Other sprain of right middle finger, initial encounter (principal); I10 Essential (primary) hypertension; Z91.018 Allergy to other foods; W20.8XXA Other cause of strike by thrown, projected or falling object, initial encounter; Y93.89 Activity, other specified; Y92.89 Other specified places as the place of occurrence of the external cause; Y99.8 Other external cause status
CPT/HCPCS: 81025

== ENCOUNTER 2017-11-07 16:54 | Emergency (ER) | payer MEDICAID ==
[2017-11-07] MEDS ORDERED: MOTRIN PO ONE (21:30)
[2017-11-07] MEDS ORDERED: TESSALON PERLES PO ONE (21:30)
--- NOTE | 2017-11-07 22:33 | Emergency Department Report ---
- General Chief Complaint: Upper Respiratory Infection Stated Complaint: FLU SX Time Seen by Provider: 11/07/17 21:30 Source: patient Mode of arrival: Ambulatory Limitations: No Limitations - History of Present Illness Initial Comments: This is a 22-year-old female nontoxic, well nourished in appearance, no acute signs of distress presents to the ED with c/o of productive cough, body aches, rhinorrhea, fever, chills, and nasal congestion x 2 days. Patient stated has not taken anything for fever and has not measured temp. Patient describes productive cough as yellow mucus production. Patient denies any sick contact. Patient denies any recent travels, long car rides, or recent hospital stays. Patient denies calf pain or calf tenderness. Patient denies drooling or hoarseness. Denies any hemoptysis. Patient denies chest pain, shortness of breath, nausea, vomiting, headache, stiff neck, numbness, tingling. Patient denies any allergies. PMH includes induced HTN. MD Complaint: fever, cough, rhinorrhea, nasal congestion -: days(s) (2) Severity: mild Severity scale (0 -10): 8 Quality: aching Consistency: constant Improves With: nothing Worsens With: nothing Associated Symptoms: fever, chills, rhinorrhea, nasal congestion, cough. denies : myalgias, diaphoresis, headache, sore throat, stiff neck, chest pain, shortness of breath, abdominal pain, nausea, vomiting, diarrhea, dysuria, rash, confusion, right sweats, weight loss, epistaxis, hoarseness, ear pain Treatments Prior to Arrival: none - Related Data Home Medications Medication Instructions Recorded Confirmed Last Taken Labetalol HCl [Labetalol HCl] 1 tab PO TID 05/08/15 05/08/15 05/08/15 11:00 One-A-Day 1 Dha Sfgl 1 cap PO DAILY 05/08/15 05/08/15 05/08/15 11:00 Valacyclovir HCl [valACYclovir] 1 cap PO DAILY 05/08/15 05/08/15 05/07/15 11:00 Previous Rx's Medication Instructions Recorded Last Taken Type Cephalexin [Keflex] 500 mg PO BID #20 capsule 11/25/16 Unknown Rx Ibuprofen [Motrin 800 MG tab] 800 mg PO Q8HR PRN #30 tablet 11/25/16 Unknown Rx Dicyclomine [Bentyl] 10 mg PO QID PRN #20 capsule 06/30/17 Unknown Rx Ondansetron [Zofran Odt] 4 mg PO QID PRN #20 tab.rapdis 06/30/17 Unknown Rx Polyethylene Glycol 3350 [Miralax 17 gm PO QDAY #30 packet 06/30/17 Unknown Rx 3350] Ibuprofen [Motrin 800 MG tab] 800 mg PO Q8HR PRN #30 tablet 08/01/17 Unknown Rx Azithromycin [Zithromax Z-EUGENIA] 250 mg PO DAILY #6 tablet 11/07/17 Unknown Rx Benzonatate [Tessalon Perle] 100 mg PO Q6H PRN #20 capsule 11/07/17 Unknown Rx Ibuprofen [Motrin] 600 mg PO Q8H PRN #30 tablet 11/07/17 Unknown Rx Oseltamivir [Tamiflu] 75 mg PO BID #14 cap 11/07/17 Unknown Rx Allergies Allergy/AdvReac Type Severity Reaction Status Date / Time carrot Allergy Swelling Verified 05/08/15 03:57 ED Review of Systems ROS: Stated complaint: FLU SX Other details as noted in HPI Constitutional: chills, fever Eyes: denies: eye pain, eye discharge, vision change ENT: denies: ear pain, throat pain Respiratory: cough. denies: shortness of breath, wheezing Cardiovascular: denies: chest pain, palpitations Endocrine: no symptoms reported Gastrointestinal: denies: abdominal pain, nausea, diarrhea Genitourinary: denies: urgency, dysuria, discharge Musculoskeletal: denies: back pain, joint swelling, arthralgia Skin: denies: rash, lesions Neurological: denies: headache, weakness, paresthesias Psychiatric: denies: anxiety, depression Hematological/Lymphatic: denies: easy bleeding, easy bruising ED Past Medical Hx - Past Medical History Previous Medical History?: Yes Hx Hypertension: Yes (this preg.) Hx Congestive Heart Failure: No Hx Diabetes: No Hx Deep Vein Thrombosis: No Hx Renal Disease: No Hx Sickle Cell Disease: No Hx Seizures: No Hx Asthma: No Hx COPD: No Hx HIV: No - Surgical History Past Surgical History?: No - Social History Smoking Status: Never Smoker Substance Use Type: None - Medications Home Medications: Home Medications Medication Instructions Recorded Confirmed Last Taken Type Labetalol HCl [Labetalol HCl] 1 tab PO TID 05/08/15 05/08/15 05/08/15 11:00 History One-A-Day 1 Dha Sfgl 1 cap PO DAILY 05/08/15 05/08/15 05/08/15 11:00 History Valacyclovir HCl [valACYclovir] 1 cap PO DAILY 05/08/15 05/08/15 05/07/15 11:00 History Cephalexin [Keflex] 500 mg PO BID #20 capsule 11/25/16 Unknown Rx Ibuprofen [Motrin 800 MG tab] 800 mg PO Q8HR PRN #30 tablet 11/25/16 Unknown Rx Dicyclomine [Bentyl] 10 mg PO QID PRN #20 capsule 06/30/17 Unknown Rx Ondansetron [Zofran Odt] 4 mg PO QID PRN #20 tab.rapdis 06/30/17 Unknown Rx Polyethylene Glycol 3350 [Miralax 17 gm PO QDAY #30 packet 06/30/17 Unknown Rx 3350] Ibuprofen [Motrin 800 MG tab] 800 mg PO Q8HR PRN #30 tablet 08/01/17 Unknown Rx Azithromycin [Zithromax Z-EUGENIA] 250 mg PO DAILY #6 tablet 11/07/17 Unknown Rx Benzonatate [Tessalon Perle] 100 mg PO Q6H PRN #20 capsule 11/07/17 Unknown Rx Ibuprofen [Motrin] 600 mg PO Q8H PRN #30 tablet 11/07/17 Unknown Rx Oseltamivir [Tamiflu] 75 mg PO BID #14 cap 11/07/17 Unknown Rx ED Physical Exam - General Limitations: No Limitations General appearance: alert, in no apparent distress - Head Head exam: Present: atraumatic, normocephalic - Eye Eye exam: Present: normal appearance, PERRL, EOMI Pupils: Present: normal accommodation - ENT ENT exam: Present: normal exam, normal orophraynx, mucous membranes moist, TM's normal bilaterally, normal external ear exam - Neck Neck exam: Present: normal inspection, full ROM. Absent: tenderness, meningismus, lymphadenopathy, thyromegaly - Respiratory Respiratory exam: Present: normal lung sounds bilaterally. Absent: respiratory distress, wheezes, rales, rhonchi, stridor, chest wall tenderness, accessory muscle use, decreased breath sounds, prolonged expiratory - Cardiovascular Cardiovascular Exam: Present: regular rate, normal rhythm, normal heart sounds. Absent: irregular rhythm, systolic murmur, diastolic murmur, rubs, gallop - GI/Abdominal GI/Abdominal exam: Present: soft, normal bowel sounds. Absent: distended, tenderness, guarding, rebound, rigid, diminished bowel sounds - Rectal Rectal exam: Present: deferred - Extremities Exam Extremities exam: Present: normal inspection, full ROM, normal capillary refill. Absent: tenderness, pedal edema, joint swelling, calf tenderness - Back Exam Back exam: Present: normal inspection, full ROM. Absent: tenderness, CVA tenderness (R), CVA tenderness (L), muscle spasm, paraspinal tenderness, vertebral tenderness, rash noted - Neurological Exam Neurological exam: Present: alert, oriented X3, CN II-XII intact, normal gait, reflexes normal - Psychiatric Psychiatric exam: Present: normal affect, normal mood - Skin Skin exam: Present: warm, dry, intact, normal color. Absent: rash ED Course Vital Signs 11/07/17 17:13 Temperature 99.2 F Pulse Rate 97 H Respiratory 16 Rate Blood Pressure 172/99 O2 Sat by Pulse 99 Oximetry - Reevaluation(s) Reevaluation #1: 11/07/17 22:32 Patient is speaking in full sentences with no signs of distress noted. ED Medical Decision Making - Medical Decision Making This is a 22-year-old female that presents with upper resp infection. Patient is stable and was examined by me. Chest xray has been obtained and dictated by radiologist with normal exam. Patient notified of x-ray results with no question or by the patient. Labs obtained. Patient received Motrin and Tessalon Perles. Vital signs stable prior to discharge. Patient is afebrile. Normal heart rate. I'll treat patient empirically with Tamiflu and azith due to symptoms worsening and symptoms of influenza at discharge. Patient was orally rehydrated in the ER and patient tolerated well with no signs of nausea or vomiting. Patient was instructed Follow-up with a primary care doctor in 3-5 days or if symptoms worsen and continue return to emergency room as soon as possible. At time time of discharge, the patient does not seem toxic or ill in appearance. No acute signs of distress noted. Patient agrees to discharge treatment plan of care. No further questions noted by the patient. This chart is dictated with using [employer] Critical care attestation.: If time is entered above; I have spent that time in minutes in the direct care of this critically ill patient, excluding procedure time. ED Disposition Clinical Impression: Upper respiratory infection Qualifiers: URI type: unspecified URI Qualified Code(s): J06.9 - Acute upper respiratory infection, unspecified Disposition: TO HOME OR SELFCARE Is pt being admited?: No Does the pt Need Aspirin: No Condition: Stable Instructions: Azithromycin (By mouth), Benzonatate (By mouth), Oseltamivir (By mouth), Ibuprofen (By mouth), Electrolyte Supplement (By mouth), Fever in Adults (ED) Additional Instructions: Follow-up with a primary care doctor in 3-5 days or if symptoms worsen and continue return to emergency room as soon as possible. Increase rest, hydration, and take Motrin fever episodes as prescribed. Prescriptions: Azithromycin [Zithromax Z-EUGENIA] 250 mg PO DAILY #6 tablet Benzonatate [Tessalon Perle] 100 mg PO Q6H PRN #20 capsule PRN Reason: Cough Ibuprofen [Motrin] 600 mg PO Q8H PRN #30 tablet PRN Reason: Pain Oseltamivir [Tamiflu] 75 mg PO BID #14 cap Referrals: PRIMARY CAREMD [Primary Care Provider] - 3-5 Days MARY KNIGHT MD [Staff Physician] - 3-5 Days [facility] [Outside] - 3-5 Days [facility] [Outside] - 3-5 Days Forms: Work/School Release Form(ED)
[2017-11-07 22:56] LABS: Basophils % (Auto) 0.7 % (0.0-1.8); Eosinophils % (Auto) 0.4 % (0.0-4.3); Hematocrit 40.7 % (30.3-42.9); Hemoglobin 13.4 gm/dl (10.1-14.3); Lymphocytes # (Auto) 1.1 K/mm3 (1.2-5.4); Lymphocytes % (Auto) 25.1 % (13.4-35.0); Mean Corpuscular HGB Conc 33 % (30-34); Mean Corpuscular Hemoglobin 29 pg (28-32); Mean Corpuscular Volume 88 fl (79-97); Monocytes # (Auto) 0.6 K/mm3 (0.0-0.8); Monocytes % (Auto) 14.1 % (0.0-7.3); Platelet Count 197 K/mm3 (140-440); Red Blood Count 4.64 M/mm3 (3.65-5.03); Red Cell Distribution Width 13.5 % (13.2-15.2)
[2017-11-07 23:05] LABS: BUN/Creatinine Ratio 7; Blood Urea Nitrogen 5 mg/dL (7-17); Calcium 8.1 mg/dL (8.4-10.2); Hemolysis Index 59
--- NOTE | 2017-11-07 23:47 | XRay Report ---
FINAL REPORT PROCEDURE: XR CHEST ROUTINE 2V TECHNIQUE: PA and lateral chest radiographs were obtained. CPT 35811 HISTORY: cough COMPARISON: No prior studies are available for comparison. FINDINGS: Heart: Normal. Mediastinum/Vessels: Normal. Lungs/Pleural space: Normal. Bony thorax: No acute osseous abnormality. Other: IMPRESSION: Normal examination.
[2017-11-07 23:50] VITALS: BP 154/99
== END 2017-11-08 00:45 | disposition home or self-care (01) ==
LOC: ED 16:54
DX: J06.9 Acute upper respiratory infection, unspecified (principal); Z91.018 Allergy to other foods
CPT/HCPCS: 36415; 71046; 80048; 84703; 85025

== ENCOUNTER 2019-04-25 06:50 | Emergency (ER) | payer SELFPAY ==
[2019-04-25] MEDS ORDERED: TORADOL IVP ONE (09:18)
[2019-04-25] MEDS ORDERED: DECADRON IV ONE (09:19)
--- NOTE | 2019-04-25 09:34 | Emergency Department Report ---
ED General Adult HPI - General Chief complaint: Dental/Oral Stated complaint: ABCESS Time Seen by Provider: 04/25/19 07:24 Source: patient Mode of arrival: Ambulatory Limitations: No Limitations - History of Present Illness Initial comments: The patient presents to the emergency department with a chief complaint of facial swelling and dental pain. Patient states she went to the dentist today to have her tooth pulled and he sent her to the ED due to symptomatic amount of swelling and questionable infection. Patient states her face began to swell ye sterday. Patient denies any difficulty swallowing or handling secretions. -: Gradual Location: mouth Radiation: non-radiation Severity scale (0 -10): 4 Quality: aching Consistency: constant Improves with: none Worsens with: none Associated Symptoms: denies other symptoms Treatments Prior to Arrival: none - Related Data Home Medications Medication Instructions Recorded Confirmed Last Taken Labetalol HCl 1 tab PO TID 05/08/15 05/08/15 05/08/15 11:00 One-A-Day 1 Dha Sfgl 1 cap PO DAILY 05/08/15 05/08/15 05/08/15 11:00 Valacyclovir HCl [valACYclovir] 1 cap PO DAILY 05/08/15 05/08/15 05/07/15 11:00 Previous Rx's Medication Instructions Recorded Last Taken Type Cephalexin [Keflex] 500 mg PO BID #20 capsule 11/25/16 Unknown Rx Ibuprofen [Motrin 800 MG tab] 800 mg PO Q8HR PRN #30 tablet 11/25/16 Unknown Rx Dicyclomine [Bentyl] 10 mg PO QID PRN #20 capsule 06/30/17 Unknown Rx Ondansetron [Zofran Odt] 4 mg PO QID PRN #20 tab.rapdis 06/30/17 Unknown Rx Polyethylene Glycol 3350 [Miralax 17 gm PO QDAY #30 packet 06/30/17 Unknown Rx 3350] Ibuprofen [Motrin 800 MG tab] 800 mg PO Q8HR PRN #30 tablet 08/01/17 Unknown Rx Azithromycin [Zithromax Z-EUGENIA] 250 mg PO DAILY #6 tablet 11/07/17 Unknown Rx Benzonatate [Tessalon Perle] 100 mg PO Q6H PRN #20 capsule 11/07/17 Unknown Rx Ibuprofen [Motrin] 600 mg PO Q8H PRN #30 tablet 11/07/17 Unknown Rx Oseltamivir [Tamiflu] 75 mg PO BID #14 cap 11/07/17 Unknown Rx HYDROcodone/APAP 7.5-325 [[place] 1 each PO Q8HR PRN #12 tablet 04/25/19 Unknown Rx 7.5/325] Allergies Allergy/AdvReac Type Severity Reaction Status Date / Time carrot Allergy Swelling Verified 05/08/15 03:57 ED Review of Systems ROS: Stated complaint: ABCESS Other details as noted in HPI Comment: All other systems reviewed and negative Constitutional: denies: chills, fever Eyes: denies: eye pain, eye discharge, vision change ENT: denies: ear pain, throat pain Respiratory: denies: cough, shortness of breath, wheezing Cardiovascular: denies: chest pain, palpitations Endocrine: no symptoms reported Gastrointestinal: denies: abdominal pain, nausea, diarrhea Genitourinary: denies: urgency, dysuria, discharge Musculoskeletal: denies: back pain, joint swelling, arthralgia Skin: denies: rash, lesions Neurological: denies: headache, weakness, paresthesias Psychiatric: denies: anxiety, depression Hematological/Lymphatic: denies: easy bleeding, easy bruising ED Past Medical Hx - Past Medical History Previous Medical History?: Yes Hx Hypertension: Yes (this preg.) Hx Congestive Heart Failure: No Hx Diabetes: No Hx Deep Vein Thrombosis: No Hx Renal Disease: No Hx Sickle Cell Disease: No Hx Seizures: No Hx Asthma: No Hx COPD: No Hx HIV: No - Surgical History Past Surgical History?: No - Social History Smoking Status: Never Smoker Substance Use Type: None - Medications Home Medications: Home Medications Medication Instructions Recorded Confirmed Last Taken Type Labetalol HCl 1 tab PO TID 05/08/15 05/08/15 05/08/15 11:00 History One-A-Day 1 Dha Sfgl 1 cap PO DAILY 05/08/15 05/08/15 05/08/15 11:00 History Valacyclovir HCl [valACYclovir] 1 cap PO DAILY 05/08/15 05/08/15 05/07/15 11:00 History Cephalexin [Keflex] 500 mg PO BID #20 capsule 11/25/16 Unknown Rx Ibuprofen [Motrin 800 MG tab] 800 mg PO Q8HR PRN #30 tablet 11/25/16 Unknown Rx Dicyclomine [Bentyl] 10 mg PO QID PRN #20 capsule 06/30/17 Unknown Rx Ondansetron [Zofran Odt] 4 mg PO QID PRN #20 tab.rapdis 06/30/17 Unknown Rx Polyethylene Glycol 3350 [Miralax 17 gm PO QDAY #30 packet 06/30/17 Unknown Rx 3350] Ibuprofen [Motrin 800 MG tab] 800 mg PO Q8HR PRN #30 tablet 08/01/17 Unknown Rx Azithromycin [Zithromax Z-EUGENIA] 250 mg PO DAILY #6 tablet 11/07/17 Unknown Rx Benzonatate [Tessalon Perle] 100 mg PO Q6H PRN #20 capsule 11/07/17 Unknown Rx Ibuprofen [Motrin] 600 mg PO Q8H PRN #30 tablet 11/07/17 Unknown Rx Oseltamivir [Tamiflu] 75 mg PO BID #14 cap 11/07/17 Unknown Rx HYDROcodone/APAP 7.5-325 [[place] 1 each PO Q8HR PRN #12 tablet 04/25/19 Unknown Rx 7.5/325] ED Physical Exam - General Limitations: No Limitations General appearance: alert, in no apparent distress - Head Head exam: Present: atraumatic, normocephalic - Eye Eye exam: Present: normal appearance - ENT ENT exam: Present: mucous membranes moist, other (intraoral cellulitis with swelling of the submandibular region on the left side with swelling of the bottom lip as well) - Neck Neck exam: Present: normal inspection - Respiratory Respiratory exam: Present: normal lung sounds bilaterally. Absent: respiratory distress - Cardiovascular Cardiovascular Exam: Present: regular rate, normal rhythm. Absent: systolic murmur, diastolic murmur, rubs, gallop - GI/Abdominal GI/Abdominal exam: Present: soft, normal bowel sounds. Absent: distended, tenderness - Extremities Exam Extremities exam: Present: normal inspection - Back Exam Back exam: Present: normal inspection - Neurological Exam Neurological exam: Present: alert, oriented X3, CN II-XII intact. Absent: motor sensory deficit - Psychiatric Psychiatric exam: Present: normal affect, normal mood - Skin Skin exam: Present: warm, dry, intact, normal color. Absent: rash ED Course Vital Signs 04/25/19 04/25/19 06:54 10:23 Temperature 99.4 F Pulse Rate 93 H Respiratory 18 18 Rate Blood Pressure 195/117 O2 Sat by Pulse 100 Oximetry ED Medical Decision Making - Lab Data Result diagrams: 04/25/19 09:30 04/25/19 09:30 Lab Results 04/25/19 04/25/19 Range/Units 09:30 09:30 WBC 13.5 H (4.5-11.0) K/mm3 RBC 4.34 (3.65-5.03) M/mm3 Hgb 12.8 (10.1-14.3) gm/dl Hct 38.6 (30.3-42.9) % MCV 89 (79-97) fl MCH 30 (28-32) pg MCHC 33 (30-34) % RDW 13.0 L (13.2-15.2) % Plt Count 247 (140-440) K/mm3 Lymph % (Auto) 11.9 L (13.4-35.0) % [place] % (Auto) 6.9 (0.0-7.3) % Eos % (Auto) 0.7 (0.0-4.3) % Baso % (Auto) 0.4 (0.0-1.8) % Lymph # 1.6 (1.2-5.4) K/mm3 [place] # 0.9 H (0.0-0.8) K/mm3 Eos # 0.1 (0.0-0.4) K/mm3 Baso # 0.1 (0.0-0.1) K/mm3 Seg Neutrophils % 80.1 H (40.0-70.0) % Seg Neutrophils # 10.8 H (1.8-7.7) K/mm3 Sodium 137 (137-145) mmol/L Potassium 4.2 (3.6-5.0) mmol/L Chloride 101.9 (98-107) mmol/L Carbon Dioxide 23 (22-30) mmol/L Anion Gap 16 mmol/L BUN 4 L (7-17) mg/dL Creatinine 0.6 L (0.7-1.2) mg/dL Estimated GFR > 60 ml/min BUN/Creatinine Ratio 7 % Glucose 100 (65-100) mg/dL Calcium 8.8 (8.4-10.2) mg/dL - Medical Decision Making Patient received IV antibiotics and steroids Patient instructed to continue the Augmentin prescribed by the dentist as well as the [place] Critical care attestation.: If time is entered above; I have spent that time in minutes in the direct care of this critically ill patient, excluding procedure time. ED Disposition Clinical Impression: Cellulitis of intraoral region Disposition: TO HOME OR SELFCARE Is pt being admited?: No Does the pt Need Aspirin: No Condition: Stable Instructions: Cellulitis (ED) Additional Instructions: return if worse Prescriptions: HYDROcodone/APAP 7.5-325 [[place] 7.5/325] 1 each PO Q8HR PRN #12 tablet PRN Reason: Pain Referrals: NAHUM AUGUST MD [Primary Care Provider] - 3-5 Days [facility] [Outside] - 3-5 Days [facility] [Outside] - 3-5 Days [facility] [Provider Group] - 3-5 Days [facility] [Provider Group] - 3-5 Days Time of Disposition: 11:25
[2019-04-25] MEDS ORDERED: UNASYN/NS 1.5 GM/50 ML 1.5 GM/50 ML BAG IV ONE (10:00)
[2019-04-25 10:12] LABS: BUN/Creatinine Ratio 7; Blood Urea Nitrogen 4 mg/dL (7-17); Calcium 8.8 mg/dL (8.4-10.2); Hemolysis Index 25
[2019-04-25 10:15] LABS: Basophils # (Auto) 0.1 K/mm3 (0.0-0.1); Basophils % (Auto) 0.4 % (0.0-1.8); Eosinophils # (Auto) 0.1 K/mm3 (0.0-0.4); Eosinophils % (Auto) 0.7 % (0.0-4.3); Hematocrit 38.6 % (30.3-42.9); Hemoglobin 12.8 gm/dl (10.1-14.3); Lymphocytes # (Auto) 1.6 K/mm3 (1.2-5.4); Lymphocytes % (Auto) 11.9 % (13.4-35.0); Mean Corpuscular HGB Conc 33 % (30-34); Mean Corpuscular Volume 89 fl (79-97); Monocytes # (Auto) 0.9 K/mm3 (0.0-0.8); Monocytes % (Auto) 6.9 % (0.0-7.3); Platelet Count 247 K/mm3 (140-440); Red Blood Count 4.34 M/mm3 (3.65-5.03)
[2019-04-25 11:55] VITALS: BP 191/106
== END 2019-04-25 11:52 | disposition home or self-care (01) ==
LOC: ED 06:50
DX: K12.2 Cellulitis and abscess of mouth (principal); I10 Essential (primary) hypertension
CPT/HCPCS: 36415; 80048; 85025; 96365; 96375; 99283; J0295; J1100; J1885